=== PATIENT | female | born 1965 | race Caucasian/White ===

== ENCOUNTER 2024-09-22 20:42 | Emergency (ER) | payer OTHER, SELFPAY ==
--- OUTSIDE RECORDS SUMMARY | 2024-09-22 20:45 | XMS_ITS | Clinical Summary ---
Author Organization [facility] Address [address] [place] [id number] Care Team Providers Care Carbon Electro[employer] Supervisor Name Role Phone Lorena Rowe MD Primary Care Provider + Allergies No known active allergies Medications No known medications Active Problems Problem Noted Date Diagnosed Date Osteopenia 12/10/2015 Overview (12/10/2015): Lumbar spine worst at -2.4. 11/2015. Abnormal thyroid function test 12/01/2015 Chronic constipation 12/01/2015 Premature menopause 12/01/2015 Tobacco abuse 12/01/2015 Insomnia, idiopathic 12/01/2015 Family History Medical History Relation Name Comments No Known Problems Daughter Unknown Father No Known Problems Son Relation Name Status Comments Brother Alive Daughter Alive Father Mother Alive Sister 1 Alive Sister 2 Alive Son Alive Social History Tobacco Use Types Packs/Day Years Used Date Smoking Tobacco: Every Day Cigarettes 0.5 30 Smokeless Tobacco: Never Tobacco Cessation:Ready to Q uit: Yes; Counseling Given: Yes Alcohol Use Standard Drinks/Week Comments No 0 (1 standard drink = 0.6 oz pur e alcohol) Comments No Sex and Gender Information Value Date Recorded Sex Assigned at Not on file Legal Sex Female 7:15 PM CDT Gender Identity Not on file Sexual Orientation Not on file Obstetrics History Last Filed Vital Signs Vital Sign Reading Time Taken Comments Blood Pressure 108/62 11/28/2015 1:38 PM CDT Pulse 78 11/28/2015 1:38 PM CDT Temperature 36.7 C (98.1 F) 11/28/2015 1:38 PM CDT Respiratory Rate - - Oxygen Saturation - - Inhaled Oxygen Concentration - - Weight 64.9 kg (143 lb) 11/28/2015 1:38 PM CDT Height 171.5 cm (5' 7.5) 11/28/2015 1:38 PM CDT Body Mass Index 22.07 11/28/2015 1:38 PM CDT Plan of Treatment Health Maintenance Due Date Last Done Comments Tetanus booster 11/22/1975 HIV for age 15-65 11/22/1979 Hepatitis C screening for age 18-79 1982 Hepatitis B series for 19+ ( 1 of 3 - 19+ 3-dose series) 11/22/1983 Colonoscopy through age 75 2009 Lipids for age 45-75 2009 Pneumococcal series for age 50+ (1 of 1 - PCV) 015 Zoster (shingles) series for age 50+ (1 of 2) 11/22/19 15 BMI (ht and wt on same day) for age 18+ 11/27/2016 1 Depression screening for age 12+ 11/27/2016 11/28/19 16 Mammogram for age 45-75 12/02/2016 12/03/2015 COVID-19 vaccine series ( season) 4 Influenza Vaccine (#1) 2024 Procedures Procedure Name Priority Date/Time Associated Diagnosis Comments XR MAMMO BILAT SCREEN FFDM W JARRED (IA) Routine 12/03/2015 1:57 PM CDT Screening for breast cancer from Last 3 Months or Most Recently Relevant to Health Maintenance Results * XR MAMMO BILAT SCREEN FFDM W JARRED (12/03/2015 1:57 PM CDT) Anatomical Region Laterality Modality BREASTS, Breast Left, Breast Right Bilateral Mammography Impressions 12/03/2015 3:51 PM CDT There is no radiographic evidence for malignancy. Recommend annual mammograms. A lay language report of this examination will be provided to the patient. MAMMOGRAM ASSESSMENT: ACR 2 Benign Narrative 12/03/2015 3:51 PM CDT XR MAMMO BILAT SCREEN FFDM W JARRED [G0202.5] CLINICAL HISTORY: This is an asymptomatic 50 y.o. patient. INDICATION FOR EXAM: Mammogram Screening. TECHNIQUE: CC & MLO views were obtained. Implant displacement views were obtained. This digital study was evaluated with the assistance of Computer-Aided Detection. COMPARISON FILMS: This is a baseline study. FINDINGS: Mammographically, the breast tissue is heterogeneously dense, which could obscure detection of small masses. No suspicious masses or microcalcifications. Implant(s) within both breasts. Lorena Rowe MD MAMMO Final Re sult from Last 3 Months or Most Recently Relevant to Health Maintenance Insurance [facility] Care Teams [employer] Supervisor Relationship Specialty Start [place] [id number] [place] [address] PCP - General Family Practice 10/04/16
[2024-09-22 20:53] VITALS: BP 162/94; PULSE 127; RESP 18; TEMP 37; O2SAT 97; BMI 15.0
--- NOTE | 2024-09-22 21:18 | ED_ITS ---
HPI - General Adult General Time Seen by Provider: 21:18 Date Seen: 09/22/24 Chief complaint: Unspecified Complaint, Adult Stated complaint: blacking out/ shaking Time Seen by Provider: 09/22/24 21:18 Source: patient and RN notes reviewed Mode of arrival: ambulatory Limitations: no limitations History of Present Illness HPI narrative: In it is a very pleasant 58-year-old female with a history of brain aneurysm coiling in December of 2023 along with history of hypothyroidism who comes to the emergency room for evaluation of having blacked out while driving. Patient notes that she felt this coming on and her [place] was nausea. She was able to wire puller the side of the road. She notes the last thing she remembered was feeling that way but when she came to she was vomiting on the side of the road. She was standing up and leaning over while doing this. After this happened she was very dizzy and went and sat in her car. She was also shaking. She then drove to the emergency room. At this time she does have a headache but notes that she has had almost daily headaches since the coiling of her brain read aneurysm in December. She states that she would really like to have and ibuprofen from her car. Patient is from [facility], [place], operated by [facility] but [place] currently and where she had the aneurysm coiling in December of 2023. Unfortunately, this is the 3rd time this has happened since the 17 of August. She notes that the initial occurrence was the 17 of August and then a few weeks ago and then now today. She denies any head trauma. Denies any alcohol use. Feli seems fairly frustrated with her care. She does describe having been seen in June of 2023 for shortness of breath and was put on a heart monitor and told it was ?okay. She does not feel like her physicians have a address her issues and states that they do not listen to her. I have talked to her about possibly changing her primary as ER visits certainly do not help with continuity of care. I did tell her that certainly tonight we could rule out any bad causes by doing CTA, doing blood work and a workup here. She is in agreement with is. Will attempt to obtain records from [facility] as I have further questions regarding the aneurysm and care. Related Data Home Medications ?Medication ?Instructions ?Recorded ?Confirmed acetaminophen 325 mg tablet 325 mg PO Q4H PRN 09/22/24 09/22/24 (Tylenol) methimazole 5 mg tablet 10 mg PO DAILY 09/22/2411/08 Allergies Allergy/AdvReac Type Severity Reaction Status Date / Time No Known Drug Allergies Allergy Verified 09/22/24 21:03 Review of Systems Status of ROS: Reports: 10 or more systems reviewed and unremarkable except as noted in History and below Const: Reports: change in weight (Marked weight loss and states this is the finished she has ever been); Denies: fever or chills Eyes: Denies: change in vision ENMT: Denies: neck pain or nasal congestion Cardio: Reports: lightheadedness and shortness of breath with exertion; Denies: chest pain Resp: Reports: shortness of breath; Denies: cough GI: Reports: nausea (Persisting) and vomiting; Denies: abdominal pain or diarrhea : Denies: painful urination Musculo: Denies: back pain, neck pain, extremity pain or extremity swelling Neuro: Reports: headache and dizziness; Denies: numbness in extremities PFSH PFS Social History Non-prescribed substance use: denies use Exam Narrative: Exam Narrative: Patient is alert and oriented. Initially very poor eye contact. Some jokes about history as I am trying to elicit other medical problems and she will state ?that is enough for now? EOM is full with pupils equal round and reactive. Head is atraumatic normocephalic. Face is symmetrical P. Speech is normal. Neck is supple. Heart with a regular rhythm. Elevated rate at a about 105. Lungs are clear bilaterally. Abdomen is soft nontender. Lower extremities show no calf tenderness. Her sap consultant strength is somewhat decreased and exam but I do note that she is dextrous when she is doing other things. She states that she can only lift her legs a small way off the bed and this is to approximately 8 in. States that she cannot go any further than that. However she is able to hold her legs at about 8 in without trembling. I do ask her to kick my hands but she states that she cannot. I do Babinski and she withdraws with full hip flexion knee flexion without difficulty. Romberg is negative. Const: Vital Signs, click to edit/add: Vital Signs - 24 hr 09/22/24 20:53 Temperature 98.6 F Pulse Rate [Right Pulse Oximeter] 127 H Respiratory Rate 18 Blood Pressure [Ri ght Upper Arm] 162/94 H Pulse Oximetry 97 Oxygen Delivery Me thod Room Air Documenting provider has reviewed patient's vital signs: yes Course Course ED Course: Differential diagnosis includes but is not limited to migraine, syncopal events, cardiac arrhythmia, stroke, seizure, electrolyte imbalance. At this time I discussed with patient that we should repeat a CT CTA given her history of aneurysm, persistent headaches, 3rd blacking out episodes that she is describing tonight. She is unable to tell me of the time lapse between periods of where in his. I would also like to obtain her records from [facility] which I will ask from nursing staff. Would also place an IV check CBC, comprehensive panel, urinalysis, EtOH, drug screen, TSH urinalysis, troponin chest x-ray EKG and cardiac monitoring. I did state that we might not be able to identify everything that is going on especially with the unusual weight loss but that we should rule out major abnormalities. Would also add a vitamin-D and magnesium level as well. She is in agreement with this plan. Vital Signs Vital signs: Initial Vital Signs Temperature 98.6 F 09/22/24 20:53 Temperature Source Temporal Artery Scan 09/22/24 20:53 Pulse Rate 127 H 09/22/24 20:53 Respiratory Rate 18 09/22/24 20:53 Blood Pressure 162/94 H 09/22/24 20:53 Blood Pressure Mean 116 H 09/22/24 20:53 Blood Pressure Position Sitting 09/22/24 20:53 Pulse Oximetry 97 09/22/24 20:53 Oxygen Delivery Method Room Air 09/22/24 20:53 Vital Signs Temperature 98.6 F 09/22/24 20:53 Pulse Rate 127 H 09/22/24 20:53 Respiratory Rate 18 09/22/24 20:53 Blood Pressure 162/94 H 09/22/24 20:53 Pulse Oximetry 97 09/22/24 20:53 Oxygen Delivery Method Room Air 09/22/24 20:53 Temperature 98.6 F 09/22/24 20:53 Pulse Rate 127 H 09/22/24 20:53 Respiratory Rate 18 09/22/24 20:53 Blood Pressure 162/94 H 09/22/24 20:53 Pulse Oximetry 97 09/22/24 20:53 Oxygen Delivery Method Room Air 09/22/24 20:53 Medications Administered Medications: Discontinued Medications Generic Name Dose Route Start Last Admin Trade Name Lizzeth PRN Reason Stop Dose Admin Sodium Chloride 1,000 mls @ 1,000 mls/hr 09/22/24 21:37 09/22/24 22:01 0.9 % Sodium Chloride 1000 Ml IV 09/22/24 22:36 Not Given .Q1H BRITTNI Ketorolac Tromethamine 15 mg 09/22/24 21:35 09/22/24 22:00 Ketorolac 15 Mg/Ml Inj IVP 09/22/24 21:36 Not Given ONCE ONE Ondansetron HCl 4 mg 09/22/24 21:35 09/22/24 22:01 Ondansetron 2 Mg/Ml Inj IVP 09/22/24 21:36 Not Given ONCE ONE Medical Decision Making MDM Narrative Medical decision making narrative: 1. Period of altered mental status -labs ordered discussed with patient and initially in agreement. However when a medication for headache brought into room along with IV fluids patient had elected to depart. I did attempt to call her on the number provided in her chart but there was no answer. 2. Disposition-AMA Lab Data Labs: Lab Results 09/22/24 Range/Units 21:17 WBC 6.96 (4.50-11.00) K/uL RBC 4.61 (4.00-5.20) m/uL Hgb 13.2 (12.0-16.0) gm/dL Hct 38.3 (33.0-51.0) % MCV 83 (80-100) fL MCH 29 (26-34) pg MCHC 35 (32-36) gm/dL RDW Coeff of Benji 13.4 (11.5-15.5) % Plt Count 249 (140-440) K/uL Neut % (Auto) 62.7 (42.0-72.0) % Lymph % (Auto) 26.6 (20-44) % [place] % (Auto) 9.8 (0.0-11.0) % Eos % (Auto) 0.6 (0.0-7.0) % Baso % (Auto) 0.3 (0.0-3.0) % Neut # (Auto) 4.37 (1.7-7.0) K/uL Lymph # (Auto) 1.85 (0.90-2.90) K/uL [place] # (Auto) 0.70 (0.00-0.90) K/UL Eos # (Auto) 0.04 (0.00-0.50) K/uL Baso # (Auto) 0.02 (0.00-0.30) K/uL Abs Immat Gran (auto) 0.00 (0.00-0.30) K/uL Imm/Tot Granulo (auto) 0.0 % Sodium 134 L (135-149) mmol/L Potassium 3.7 (3.6-5.1) mmol/L Chloride 101 (96-114) mmol/L Carbon Dioxide 25 (20-32) mmol/L Anion Gap 8 (7-15) mEq/L BUN 17 (7-30) mg/dL Creatinine 0.6 (0.5-1.5) mg/dL Estimated Creat Clear 69.40 Estimated GFR 103 ml/min Glucose 115 (60-115) mg/dL Calcium 9.4 (8.4-10.6) mg/dL Total Bilirubin 0.4 (0.1-1.5) mg/dL AST 41 H (12-35) U/L ALT 54 H (4-35) U/L Alkaline Phosphatase 152 H (40-150) U/L Total Protein 6.6 (6.0-8.3) g/dL Albumin 3.9 (3.3-5.0) g/dL Ethyl Alcohol < 0.01 (0.01-0.03) % ECG Data Attestation: I personally reviewed and interpreted this ECG as follows: Prior ECG tracings: not available for review Interpretation: EKG by my read shows sinus tachycardia at 0112. I do not note any acute ST or T-wave changes. QT and IL intervals within normal limits. Discharge Plan Discharge Patient Disposition: Left Against Medical Advice Prescriptions: No Action methimazole 5 mg tablet 10 mg PO DAILY acetaminophen [Tylenol] 325 mg tablet 325 mg PO Q4H PRN Stand Alone Forms: My[employer] Info Instructions
[2024-09-22 21:53] LABS: Hematocrit 38.3 % (33.0-51.0); Hemoglobin* 13.2 gm/dL (12.0-16.0); Immature Granulocytes Abs Auto 0.00 K/uL (0.00-0.30); Immature Granulocytes Pct Auto 0.0 %; Lymphocytes Absolute Auto 1.85 K/uL (0.90-2.90); Mean Corpuscular HGB Conc 35 gm/dL (32-36); Mean Corpuscular Hemoglobin 29 pg (26-34); Mean Corpuscular Volume 83 fL (80-100); RDW Coefficient of Variation % 13.4 % (11.5-15.5); Red Blood Count 4.61 m/uL (4.00-5.20); White Blood Count* 6.96 K/uL (4.50-11.00)
[2024-09-22 21:54] LABS: Slide Review Reflex No
--- NOTE | 2024-09-22 21:59 | ED.NURSE ---
PT wants to leave. Pt had no specific reason. Just wanted to take Advil at home. IV removed. Pt walked out of ER.
--- NOTE | 2024-09-22 22:00 | ED.NURSE ---
Pt did not want to sign AMA paperwork
[2024-09-22 22:09] LABS: Albumin* 3.9 g/dL (3.3-5.0); Chloride* 101 mmol/L (96-114); Sodium* 134 mmol/L (135-149)
[2024-09-22 22:10] LABS: Potassium* 3.7 mmol/L (3.6-5.1)
[2024-09-22 22:12] LABS: Alanine Aminotransferase* 54 U/L (4-35); Alkaline Phosphatase* 152 U/L (40-150); Anion Gap 8 mEq/L (7-15); Aspartate Amino Transferase* 41 U/L (12-35); Bilirubin Total* 0.4 mg/dL (0.1-1.5); Blood Urea Nitrogen* 17 mg/dL (7-30); Calcium* 9.4 mg/dL (8.4-10.6); Carbon Dioxide* 25 mmol/L (20-32); Creatinine* 0.6 mg/dL (0.5-1.5); Est. Creatinine Clearance* 69.40; Estimated Glomerular Filt Rate 103 ml/min; Glucose* 115 mg/dL (60-115); Total Protein* 6.6 g/dL (6.0-8.3)
[2024-09-22 22:14] LABS: Ethanol* < 0.01 % (0.01-0.03)
== END 2024-09-22 22:10 | disposition left against medical advice (07) ==
LOC: ED 22:06
PROVIDERS: Emergency Provider Family Medicine
DX: R41.82 Altered mental status, unspecified (principal); Z53.29 Procedure and treatment not carried out because of patient's decision for other reasons
CPT/HCPCS: 36415; 80053; 80306; 81001; 82077; 84484; 85025; 93005; 99283; 99284